=== PATIENT | female | born 1985 ===

== ENCOUNTER 2018-11-16 11:30 | Emergency (ER) | payer OTHER ==
[2018-11-16 12:48] VITALS: BP 131/81
--- NOTE | 2018-11-16 13:10 | UC ---
General HPI - HPI Summary HPI Summary: PT SAW HER PCP THIS PAST FRIDAY AND WAS DX WITH A VIRAL ILLNESS. SHE BECAME ILL A FEW DAYS BEFORE THAT VISIT. SHE HAS ONGOING SINUS CONGESTION AND DEVELOPED EAR PRESSURE. BOTH EARS HAVE BECOME VERY PAINFUL AND THE LEFT POPPED TODAY MAKING THAT EAR UNBEARABLE RIGHT AFTER. + SINUS PAIN/PRESSURE. NO FEVER. - History of Current Complaint Chief Complaint: UCRespiratory Stated Complaint: BILAT EAR PAIN Time Seen by Provider: 11/16/18 13:04 Hx Obtained From: Patient Hx Last Menstrual Period: 11/05/18 Pain Intensity: 8 Associated Signs & Symptoms: Positive: Headache - Allergy/Home Medications Allergies/Adverse Reactions: Allergies Allergy/AdvReac Type Severity Reaction Status Date / Time No Known Allergies Allergy Verified 11/16/18 12:39 PMH/Surg Hx/FS Hx/Imm Hx Previously Healthy: Yes - Surgical History Surgical History: Yes Surgery Procedure, Year, and Place: LEFT nephrectomy, 2011. Tubal ligation - Family History Known Family History: Positive: Non-Contributory - Social History Occupation: Employed Full-time Alcohol Use: Rare Substance Use Type: None Smoking Status (MU): Light Every Day Tobacco Smoker Type: Cigarettes Amount Used/How Often: 5-8 cigs/day Length of Time of Smoking/Using Tobacco: 20 years Review of Systems All Other Systems Reviewed And Are Negative: No Constitutional: Negative: Fever Eyes: Negative: Eye Redness ENT: Positive: Ear Ache, Nasal Discharge, Sinus Congestion. Negative: Sore Throat Respiratory: Negative: Shortness Of Breath, Cough Cardiovascular: Negative: Palpitations, Chest Pain Neurological: Positive: Headache Physical Exam Triage Information Reviewed: Yes Appearance: Well-Appearing Vital Signs: Initial Vital Signs Temp 98.6 F 11/16/18 12:39 Pulse 88 11/16/18 12:39 Resp 16 11/16/18 12:39 BP 131/81 11/16/18 12:39 Pulse Ox 98 11/16/18 12:39 Vital Signs Reviewed: Yes Eyes: Positive: Conjunctiva Clear ENT: Positive: Pharynx normal, Nasal congestion, Nasal drainage - clear, TM red - x2. canals clear. no mastoid tenderness or auricular adenopathy. Neck: Positive: Supple, Nontender, No Lymphadenopathy Respiratory: Positive: Lungs clear, Normal breath sounds Cardiovascular: Positive: RRR Neurological: Positive: Alert Psychological: Positive: Age Appropriate Behavior Skin Exam: Normal Course/Dx - Diagnoses Provider Diagnosis: URI (upper respiratory infection), Otitis media Discharge ED - Sign-Out/Discharge Documenting (check all that apply): Patient Departure All imaging exams completed and their final reports reviewed: No Studies - Discharge Plan Condition: Stable Disposition: HOME Prescriptions: Amoxicillin PO (*) [Amoxicillin 875 MG (*)] 875 mg PO BID 10 Days #20 tab Patient Education Materials: Ear Infection (ED), Upper Respiratory Infection ( DC) Referrals: Roberto Magana MD [Primary Care Provider] - 7 Days Additional Instructions: START A DECONGESTANT PER LABEL X 3 DAYS THEN NEEDED. - Billing Disposition and Condition Condition: STABLE Disposition: Home
== END 2018-11-16 13:16 | disposition home or self-care (01) ==
LOC: UCCORT 11:30
DX: J06.9 Acute upper respiratory infection, unspecified (principal); H66.93 Otitis media, unspecified, bilateral; F17.210 Nicotine dependence, cigarettes, uncomplicated
CPT/HCPCS: 99212; G0463